=== PATIENT | male | born 1960 | race Caucasian/White ===

== ENCOUNTER → 2022-06-19 09:08 | Outpatient (CLI) | payer BC, SELFPAY ==
[2022-06-19 10:21] LABS: COVID19 -Nasal RAPID Negative (Negative)
== END ==
PROVIDERS: PCP Family Medicine; Visit Provider Surgery
DX: Z20.822 Contact with and (suspected) exposure to COVID-19 (principal); Z01.812 Encounter for preprocedural laboratory examination
CPT/HCPCS: 87635; C9803

== ENCOUNTER 2022-06-20 07:50 | Day surgery (SDC) | payer BC, SELFPAY ==
[2022-06-20 08:06] VITALS: BP 149/92; PULSE 78; RESP 18; TEMP 36.2; O2SAT 98
[2022-06-20 08:07] VITALS: BMI 26.6
[2022-06-20] MEDS: SODIUM CHLORIDE 0.9% 1,000 ML 84 ML IV (08:24)
--- NOTE | 2022-06-20 08:29 | P.HP_ITS ---
History of Present Illness History of Present Illness Date Patient Seen: 06/20/22 Chief complaint: COLONOSCOPY Narrative: Family history of colon cancer in his father with personal history of colon polyps. Last colonoscopy 2016 had no polyps. Patient History Medical History (Updated 06/20/22 @ 07:45 by Susan Mclaughlin RN) Diverticulitis Hypercholesterinemic xanthomatosis Surgical History (Updated 06/20/22 @ 07:47 by Susan Mclaughlin RN) H/O colonoscopy History of colon resection History of esophagogastroduodenoscopy Hx of breast reduction, elective Hx of tonsillectomy Family & Social History Social History: household members spouse Tobacco & Substance use: Smoking Status Former smoker alcohol intake current alcohol intake frequency a few times a week Substance Use Type does not use Meds Home Medications and Allergies Home Medications Medication Instructions Recorded Confirmed Type lovastatin 40 mg tablet 40 mg DAILY 06/20/22 06/20/22 History Allergies Allergy/AdvReac Type Severity Reaction Status Date / Time No Known Drug Allergies Allergy Verified 06/20/22 08:02 Exam Vital Signs (past 8 hours): - 06/20/22 08:06 Temperature 97.2 F L Pulse Rate 78 Respiratory Rate 18 Blood Pressure 149/92 H Pulse Oximetry 98 Oxygen Delivery Method Room Air Oxygen Delivery Method Room Air Narrative Exam Narrative: Chest clear to auscultation percussion Cardiac exam reveals no S3 or murmur Oropharynx free of lesion Assessment & Plan Assessment & Plan narrative: Personal history of colon polyps and family history of colon cancer in a first- degree relative. Need for follow-up colonoscopy. Risks benefits alternatives have been explained. Time Spent With Patient Critical Care time: I spent a total of [] minutes of critical care time on this patient's care today; this time is exclusive of procedural time.
--- NOTE | 2022-06-20 08:31 | PM.OP.COLON ---
Operative Date/Time/Diagnoses Date of procedure: 06/20/22 Pre-op diagnosis: See indication and findings Procedure & Clinicians Study performed: Colonoscopy Indications: Family history of colon cancer in his father with personal history of colon polyps the last colonoscopy negative. Surgeon: Hillary Mars Procedure Notes Procedure in detail: After informed consent was obtained the patient was placed in left lateral decubitus position. The video colonoscope was introduced the rectum slowly advanced cecum. Preparation was good. On slow withdrawal mucosa was carefully examined. The scope was removed. The patient tolerated procedure well. Blood loss none Complications none Sedation mac Findings 1. Surgical anastomosis at 20 cm appearing normal. 2. Scattered diverticulosis 3. Otherwise normal colonoscopy to cecum. No evidence for recurrent polyps Patient should have follow-up colonoscopy in 5 years due to family history.
[2022-06-20 08:53] VITALS: BP 114/75; PULSE 68; RESP 14; TEMP 36.2; O2SAT 95
[2022-06-20 08:59] VITALS: BP 105/73; PULSE 80; RESP 18; TEMP 36.8; O2SAT 97
[2022-06-20 09:03] VITALS: BP 116/86; PULSE 80; RESP 17; TEMP 36.4; O2SAT 97
== END 2022-06-20 09:09 | disposition home or self-care (01) ==
PROVIDERS: PCP Family Medicine; Referring Provider Internal Medicine Gastroenterology; Visit Provider Internal Medicine Gastroenterology
PROC: 0DJD8ZZ Inspection of Lower Intestinal Tract, Via Natural or Artificial Opening Endoscopic (ICD-10-PCS; CPT 45378; principal; 2022-06-20 08:30)
DX: Z12.11 Encounter for screening for malignant neoplasm of colon (principal); Z86.010 Personal history of colon polyps; Z80.0 Family history of malignant neoplasm of digestive organs; K57.30 Diverticulosis of large intestine without perforation or abscess without bleeding
CPT/HCPCS: 45378; J2704